=== PATIENT | female | born 1955 | race American Indian/Alaskan Native ===

== ENCOUNTER 2016-12-05 09:39 | Outpatient (CLI) | payer MEDICARE ==
--- NOTE | 2016-12-05 10:56 | Ultrasound Report ---
ULTRASOUND RENAL INDICATION: Reduced GFR. COMPARISON: 06/01/2016 CT. FINDINGS: Renal sonography demonstrates normal renal cortical echogenicity. Grossly preserved contours. No hydronephrosis. Echogenic imaged liver. Right kidney measures 9.8 x 5.3 x 5.1 cm with cortical thickness of 1.6 cm. Left kidney estimated at 9.9 x 5.8 x 4 cm with cortical thickness of 1 cm. Of 2 left lower renal cortical cysts known by prior CT, the larger now measures 5.7 x 4.2 x 3.9 cm. Urinary bladder suboptimally distended and assessed. CONCLUSION: Left lower renal cortical cyst and possible fatty liver without acute renal sonographic abnormality, as described. Thank you for the opportunity to participate in this patient's care.
== END 2016-12-05 09:40 | disposition home or self-care (01) ==
LOC: US 09:39
PROVIDERS: ATTEND Internal Medicine
DX: N28.1 Cyst of kidney, acquired (principal); N32.89 Other specified disorders of bladder; R94.4 Abnormal results of kidney function studies
CPT/HCPCS: 76770

== ENCOUNTER 2017-09-21 10:01 | Outpatient (CLI) | payer MEDICARE ==
--- NOTE | 2017-09-21 13:25 | XRay Report ---
XRAY LEFT KNEE 4 THREE VIEWS: 09/21/17 CLINICAL: Left knee pain. FINDINGS: Status post total joint replacement with normal appearance of the prosthesis. No fracture or dislocation. Quadriceps insertion enthesophyte. No joint effusion.Normal soft tissues. IMPRESSION: Status post total knee replacement. Quadriceps enthesopathy.
== END 2017-09-21 10:02 | disposition home or self-care (01) ==
LOC: SPVIMAG 10:01
PROVIDERS: ATTEND Orthopaedic Surgery Sports Medicine
DX: M76.892 Other specified enthesopathies of left lower limb, excluding foot (principal); Z96.652 Presence of left artificial knee joint

== ENCOUNTER 2018-09-06 09:06 | Outpatient (CLI) | payer MEDICARE ==
[2018-09-06 11:04] LABS: Chol/HDL Ratio 3.08 %
== END 2018-09-06 09:07 | disposition home or self-care (01) ==
LOC: LAB 09:06
PROVIDERS: ATTEND Internal Medicine
DX: I13.0 Hypertensive heart and chronic kidney disease with heart failure and stage 1 through stage 4 chronic kidney disease, or unspecified chronic kidney disease (principal); N32.81 Overactive bladder; E66.01 Morbid (severe) obesity due to excess calories; R60.9 Edema, unspecified; J45.909 Unspecified asthma, uncomplicated; N18.2 Chronic kidney disease, stage 2 (mild); I50.30 Unspecified diastolic (congestive) heart failure; R73.9 Hyperglycemia, unspecified
CPT/HCPCS: 36415; 80061; 82306; 83036

== ENCOUNTER 2019-01-02 09:12 | Outpatient (CLI) | payer MEDICARE ==
[2019-01-02 11:33] LABS: Uric Acid 6.8 mg/dL (3.5-7.6)
[2019-01-02 11:46] LABS: Chol/HDL Ratio 2.58 %
[2019-01-06 05:52] LABS: Vitamin D, 25-OH, D2 <4 ng/mL
== END 2019-01-02 09:13 | disposition home or self-care (01) ==
LOC: LAB 09:12
PROVIDERS: ATTEND Internal Medicine
DX: E55.9 Vitamin D deficiency, unspecified (principal); E66.01 Morbid (severe) obesity due to excess calories; I13.2 Hypertensive heart and chronic kidney disease with heart failure and with stage 5 chronic kidney disease, or end stage renal disease; I50.9 Heart failure, unspecified; N18.6 End stage renal disease; J44.9 Chronic obstructive pulmonary disease, unspecified; Z90.710 Acquired absence of both cervix and uterus
CPT/HCPCS: 36415; 80061; 82306; 84550